=== PATIENT | male | born 1990 | race Caucasian/White ===

== ENCOUNTER 2018-08-22 01:23 | Emergency (ER) | payer SELFPAY ==
[~2018-08-22] VITALS: Ht 175.3 cm; Wt 106.6 kg
[2018-08-22 01:23] VITALS: BP_SYST 145
--- NOTE | 2018-08-22 01:23 | NUR ---
Placed in room 6 . Placed on lunchroom monitor, blood pressure machine and pulse oximeter. To gown for exam. Side rails up.
--- NOTE | 2018-08-22 01:25 | NUR ---
Pt was brought in by girlfriend for evaluation of ETOH. Pt not following commands. Per girlfriend patient has vomited prior to coming to ED. No other injuries/complaints per patient or noted.
--- NOTE | 2018-08-22 01:31 | NUR ---
ER Dr. Reardon at bedside examining patient.
[2018-08-22] MEDS ORDERED: FOLIC ACID IV ONE (01:45)
[2018-08-22] MEDS ORDERED: THIAMINE HCL IV ONE (01:45)
[2018-08-22] MEDS ORDERED: NACL 0.9% IV ONE (01:45)
[2018-08-22 01:49] LABS: BASOPHILS % (AUTO) 0.6 % (0.0-2.0); EOSINOPHILS % (AUTO) 0.2 % (0.0-4.0); HEMATOCRIT 37.8 % (36-54); HEMOGLOBIN 12.4 g/dL (14.0-18.0); LYMPHOCYTES % (AUTO) 29.5 % (20.5-51.5); MEAN CORPUSCULAR HEMOGLOBIN 29 pg (27-31); MEAN CORPUSCULAR HGB CONC 33 % (32-36); MEAN CORPUSCULAR VOLUME 88 fL (79.0-98.0); MONOCYTES # (AUTO) 0.7 K/uL (0.0-1.0); MONOCYTES % (AUTO) 9.9 % (1.7-9.3); NEUTROPHILS % (AUTO) 59.8 % (40.0-70.0); PLATELET COUNT (AUTO) 312 K/uL (130-430); RED BLOOD CELL COUNT(AUTO) 4.32 MIL/uL (4.2-6.2); RED CELL DISTRIBUTION WIDTH 14.1 % (9.0-15.0); WHITE BLOOD COUNT (AUTO) 6.8 K/uL (4.8-10.8)
[2018-08-22] MEDS ORDERED: THIAMINE HCL 100 MG/ML VIAL ONE (01:56)
[2018-08-22] MEDS ORDERED: FOLIC ACID 5 MG/ML VIAL IV ONE (01:56)
[2018-08-22 02:05] LABS: ANION GAP 15 (5-15); CALCIUM 8.4 mg/dL (8.4-11.0); CHLORIDE 102 mmol/L (98-107); CREATININE 1.14 mg/dL (0.55-1.30); GLUCOSE 122 mg/dL (70-99); POTASSIUM 3.8 mmol/L (3.5-5.1); SODIUM SERUM 141 mmol/L (136-145); UREA NITROGEN, BLOOD 9 mg/dL (8-21)
[2018-08-22 02:07] LABS: GFR AFRICAN AMERICAN 97 mL/min (>90)
[2018-08-22 02:09] LABS: ALANINE AMINOTRANSFERASE 69 U/L (12-78); ALBUMIN 3.4 g/dL (3.4-4.8); ALCOHOL, BLOOD 166 mg/dL (<10); ASPARTATE AMINOTRANSFERASE 28 U/L (10-37); TOTAL BILIRUBIN 0.2 mg/dL (0.0-1.0)
[2018-08-22 02:30] LABS: ACETAMINOPHEN < 1 ug/mL (1-30)
--- NOTE | 2018-08-22 02:33 | NUR ---
Pt sleeping comfortably in bed. no acute distress, will continue to monitor.
--- NOTE | 2018-08-22 02:45 | NUR ---
pt got up to use restroom requesting for urinal. Pt was unable to hold urine and started to urinate on self and floor. Pt refused to get out of wet clothes and went back to bed.
--- NOTE | 2018-08-22 06:03 | NUR ---
Pt woke up to use the urinal but overflowed and spilled onto floor. Pt sat down on gurglide and stated, "I don't feel good." Patient was given emesis bag. Pt states "I feel like I'm going to seize. 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 Dr. Reardon notified.
--- NOTE | 2018-08-22 06:05 | NUR ---
Seizure precautions in place. Seizure pads applied to gurney. Side rails up.
[2018-08-22] MEDS ORDERED: LORazepam 2 MG/ML VIAL (FOR ER USE) IVP ONE (06:15)
--- NOTE | 2018-08-22 06:22 | NUR ---
Medication was given, pt tolerated well. No adverse reaction, will continue to monitor.
--- NOTE | 2018-08-22 07:26 | NUR ---
Report given to ELLE Block. All care endorsed.
--- NOTE | 2018-08-22 07:28 | NUR ---
ER Dr. Bustillo at bedside examining patient.
--- NOTE | 2018-08-22 07:30 | NUR ---
Patient asleep, cleaned frothy saliva off face.
--- NOTE | 2018-08-22 09:00 | NUR ---
atient asleep, cleaned frothy saliva off mouth. patient quietly resting.
--- NOTE | 2018-08-22 09:00 | NUR ---
Patient asleep, cleaned frothy saliva off mouth. patient quietly resting.
[2018-08-22 10:57] VITALS: BP_SYST 122
--- NOTE | 2018-08-22 10:57 | NUR ---
Patient given written and verbal discharge instructions and verbalizes understanding. ER MD discussed with patient the results and treatment provided. Patient in stable condition. ID arm band removed. IV catheter removed intact and dressing applied, no active bleeding. Rx of xanax given. Patient educated on pain management and to follow up with PMD. Pain Scale0/10 . Opportunity for questions provided and answered. Medication side effect fact sheet provided.
--- NOTE | 2018-08-22 10:57 | NUR ---
Patient given written and verbal discharge instructions and verbalizes understanding. ER MD discussed with patient the results and treatment provided. Patient in stable condition. ID arm band removed. IV catheter removed intact and dressing applied, no active bleeding. Rx of xanax given. Patient educated on pain management and to follow up with PMD. Pain Scale 0/10 . Opportunity for questions provided and answered. Medication side effect fact sheet provided.
== END 2018-08-22 10:57 | disposition home or self-care (01) ==
LOC: SED 01:23
DX: F10.129 Alcohol abuse with intoxication, unspecified (principal); F41.9 Anxiety disorder, unspecified; R03.0 Elevated blood-pressure reading, without diagnosis of hypertension; Y90.6 Blood alcohol level of 120-199 mg/100 ml
CPT/HCPCS: 36415; 36600; 80053; 82803; 85025; 93005; 96365; 96366; 96375; 99284; G0480; G0481; G0482; J2060; J3411; J3490